=== PATIENT | male | born 1970 | race Caucasian/White ===

== ENCOUNTER 2019-10-24 | Emergency (ER) | payer OTHER ==
[2019-10-24] MEDS ORDERED: ALLOPURINOL300 MG PO (11:03)
[2019-10-24] MEDS ORDERED: BENAZEPRIL HYDR20 MG PO (11:03)
[2019-10-24] MEDS ORDERED: ATORVASTATIN CA40 MG PO (11:03)
[2019-10-24] MEDS ORDERED: METFORMIN HCL1000 MG PO (11:04)
== END 2019-10-24 12:10 | disposition home or self-care (01) | DRG 563 ==
PROC: 2W3DX1Z Immobilization of Left Lower Arm using Splint (ICD-10-PCS; principal; 2019-10-24)
DX: S52.202A Unspecified fracture of shaft of left ulna, initial encounter for closed fracture (principal); I10 Essential (primary) hypertension; E11.9 Type 2 diabetes mellitus without complications; W23.0XXA Caught, crushed, jammed, or pinched between moving objects, initial encounter; Y93.89 Activity, other specified; Z79.84 Long term (current) use of oral hypoglycemic drugs